=== PATIENT | female | born 1990 | race Caucasian/White ===

== ENCOUNTER 2016-11-05 18:17 | Emergency (ER) | payer MEDICAID ==
--- NOTE | 2016-11-05 20:39 | ER Document Report ---
ED General - General Mode of Arrival: Ambulatory Information source: Patient TRAVEL OUTSIDE OF THE [place] IN LAST 30 DAYS: No - HPI Onset: Other - see HPI note - General Chief Complaint: Sunburn Stated Complaint: LEG PROBLEMS Notes: Patient is a 26-year-old female presented emergency department for sometime. Patient states that she went to the week and did not protect herself a sunscreen. Patient has sunburn to her lower extremities bilaterally. Patient states that she is unsure of her last tetanus but knows that it was not within the last 10 years, she is overdue for tetanus vaccination. 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 Patient has no known allergies. Patient recently moved to this area and does not have a current primary care physician, but has Medicaid for her insurance. (ROSALINDA GANDARA) - Related Data Allergies/Adverse Reactions: nitrofurantoin [From Macrodantin] Allergy (Verified 11/05/16 18:38) Hives Sulfa (Sulfonamide Antibiotics) Allergy (Verified 11/05/16 18:38) Hives Past Medical History - General Information source: Patient - Social History Smoking Status: Unknown if Ever Smoked Family History: None Patient has suicidal ideation: No Patient has homicidal ideation: No Neurological Medical History: Reports: Other - Pseudotumor Surgical Hx: Negative Review of Systems - Review of Systems Constitutional: No symptoms reported EENT: No symptoms reported Cardiovascular: No symptoms reported Respiratory: No symptoms reported Gastrointestinal: No symptoms reported Genitourinary: No symptoms reported Female Genitourinary: No symptoms reported Musculoskeletal: No symptoms reported Skin: See HPI Hematologic/Lymphatic: No symptoms reported Neurological/Psychological: No symptoms reported Physical Exam - Vital signs Interpretation: Normal - HEENT Head: Normocephalic, Atraumatic Eyes: Normal Pupils: PERRL Mucous membranes: Moist - Respiratory Respiratory status: No respiratory distress - Cardiovascular Rhythm: Regular - Abdominal Inspection: Normal - Back Back: Normal - Extremities General upper extremity: Normal inspection, Normal ROM, Other General lower extremity: Other - 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, they are not secondarily infected, no crepitus, necrosis, or cellulitic; good pulses and perfusion; no pitting edema - Neurological Neuro grossly intact: Yes Cognition: Normal Orientation: AAOx4 [place] Coma Scale Eye Opening: Spontaneous [place] Coma Scale Verbal: Oriented [place] Coma Scale Motor: Obeys Commands [place] Coma Scale Total: 15 Speech: Normal - Psychological Associated symptoms: Normal affect, Normal mood - Skin Skin Temperature: Warm Skin Moisture: Dry Course - Re-evaluation Re-evalutation: 11/05/16 20:39 Patient presents emergency department with sunburn to her lower extremities occur week ago she didn't protect herself a sunscreen she is not diabetic 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 There is no secondary signs of infection on need for emergent antibiotics. She is well -appearing nontoxic afebrile can update her tetanus bacitracin dressing follow primary care physician on Tuesday or Tuesday and discuss reasons for ED return sooner (JESS SEGURA) - Vital Signs Vital signs: Temp Pulse Resp BP Pulse Ox 98.2 F 88 16 142/88 H 98 11/05/16 20:50 11/05/16 20:50 11/05/16 20:50 11/05/16 20:50 11/05/16 20:50 Discharge - Discharge Clinical Impression: resolving first- second-degree sunburn Condition: Stable Disposition: HOME, SELF-CARE Additional Instructions: Sunburn Sunburn is caused by prolonged exposure to ultraviolet light. This can be natural sunlight or a tanning bed. Your symptoms may include redness or blistering of the skin, fatigue, weakness, and chills that last two or three days. Treatment includes antiinflammatory pain medication, rest, cooling baths, and moisturizing skin cream. Occasionally, cortisone-type medicine is required for severe sunburns. Antihistamines may be helpful if itching is severe as you heal. You should avoid any exposure to ultraviolet light for the next week or two so that further skin damage can be avoided. In the future, you should use sunscreens. Frequent or prolonged ultraviolet light exposure can cause premature skin aging, skin cancers, and wrinkles. Call the doctor if you are not improving in two or three days. Report any drainage, increasing swelling, fever, chills, or other signs of infection. Prescriptions: Bacitracin Zinc [Bacitracin Oint 15 gm] 1 applic TP DAILY #1 tube Referrals: KEISHA LUI MD [ACTIVE STAFF] - (Call for appointment to be seen in follow-up in 3-4 days return for increasing worsening or new symptoms) Scribe Attestation: 11/05/16 20:43 I personally performed the services described in the documentation reviewed the documentation recorded by the scribe in my presence and it accurately incompletely records my words and actions (JESS SEGURA) Scribe Documentation - Scribe Written by Scribe:: Rosalinda Gandara 11/05/16 20:56 acting as scribe for :: COLTON
[2016-11-05] MEDS ORDERED: BACITRACIN ZINC OINTMENT 15 GM TP ONE (20:43)
[2016-11-05 21:03] VITALS: BP 142/88
== END 2016-11-05 20:50 | disposition home or self-care (01) ==
LOC: ER 18:17
DX: L55.1 Sunburn of second degree (principal); Z79.899 Other long term (current) drug therapy; Z88.2 Allergy status to sulfonamides; Z88.1 Allergy status to other antibiotic agents
CPT/HCPCS: 99282; J3490

== ENCOUNTER → 2016-11-24 | Outpatient (CLI) | payer MEDICAID ==
[2016-11-25 15:27] LABS: FREE T3 1.55 pg/mL (2.77-5.27); THYROID STIMULATING HORMONE 2.09 uIU/mL (0.47-4.68)
== END ==
LOC: OD 17:00
PROVIDERS: ATTEND Internal Medicine Geriatric Medicine
DX: Z68.42 Body mass index [BMI] 45.0-49.9, adult (principal)
CPT/HCPCS: 36415; 82533; 84439; 84443; 84481

== ENCOUNTER → 2016-11-25 | Outpatient (CLI) | payer MEDICAID | LOC: OD 09:04 | PROVIDERS: ATTEND Internal Medicine Geriatric Medicine | DX: E66.01 Morbid (severe) obesity due to excess calories (principal); Z68.42 Body mass index [BMI] 45.0-49.9, adult | CPT/HCPCS: 36415; 82533 ==

== ENCOUNTER 2017-01-22 22:48 | Emergency (ER) | payer MEDICAID ==
[2017-01-23] MEDS ORDERED: ERYTHROMYCIN 0.5% OPH OINTMENT 3.5 GM TUBE OS ONE (00:58)
--- NOTE | 2017-01-23 01:02 | ER Document Report ---
ED General - General Chief Complaint: Eye Problem Stated Complaint: LEFT EYE PAIN Time Seen by Provider: 01/23/17 00:40 Notes: Patient is a 26-year-old female presents with complaint of pain in the left eye. Patient says that she feels as if there is something in her eye. She denies being around any debris. She is only thing that she is done today which can cause something to go to her eye is that she was driving with her windows down earlier. Her vision is a little blurred in that eye and she does have some photophobia. She has no other complaints at this time. TRAVEL OUTSIDE OF THE [place] IN LAST 30 DAYS: No - Related Data Allergies/Adverse Reactions: nitrofurantoin [From Macrodantin] Allergy (Verified 11/05/16 18:38) Hives Sulfa (Sulfonamide Antibiotics) Allergy (Verified 11/05/16 18:38) Hives Past Medical History - Social History Smoking Status: Unknown if Ever Smoked Frequency of alcohol use: None Drug Abuse: None Family History: None Patient has suicidal ideation: No Patient has homicidal ideation: No Renal/ Medical History: Denies: Hx Peritoneal Dialysis Surgical Hx: Negative - Immunizations Hx Diphtheria, Pertussis, Tetanus Vaccination: Yes Review of Systems - Review of Systems Notes: My Normal Review Basic REVIEW OF SYSTEMS: CONSTITUTIONAL : Denies fever, chills, or sweats. Denies recent illness. EENT: Left eye pain. SKIN: Denies rash or skin lesions. NEUROLOGICAL: Denies altered mental status or loss of consciousness. ALL OTHER SYSTEMS REVIEWED AND NEGATIVE. Physical Exam - Vital signs Vitals: Temp Pulse Resp BP Pulse Ox 98.6 F 105 H 18 145/102 H 96 01/22/17 22:57 01/22/17 22:57 01/22/17 22:57 01/22/17 22:57 01/22/17 22:57 - Notes Notes: General Appearance: Well nourished, alert, cooperative, no acute distress, no obvious discomfort. Vitals: reviewed, See vital signs table. Head: no swelling or tenderness to the head Eyes: PERRL, EOMI, Conjuctiva clear. Negative for seems staining of the eye. On slit-lamp examination patient does have a small speck of what appears to be organic material embedded over the pupil. Does not appear to be metallic. No hyphema. No sidels's sign Skin: warm, dry, appropriate color, no rash Neuro: speech clear, oriented x 3, normal affect, responds appropriately to questions. Course - Re-evaluation Re-evalutation: 01/23/17 01:31 Patient has small foreign body in the left eye. I am unable to remove it. I did attempt use of Q-tips rolled off. I could not get up. Due to the very small size of the material do not think an 18-gauge needle would be appropriate as it would be very hard to get behind this to remove it. I will place her on erythromycin ointment. I will refer her to the home health nurse licensed practical. I encouraged her to call the home health nurse licensed practical office on Tuesday for close follow-up. Patient agrees with plan and will be discharged home. Dictation of this chart was performed using voice recognition software; therefore, there may be some unintended grammatical errors. - Vital Signs Vital signs: Temp Pulse Resp BP Pulse Ox 98.6 F 105 H 18 145/102 H 96 01/22/17 22:57 01/22/17 22:57 01/22/17 22:57 01/22/17 22:57 01/22/17 22:57 Discharge - Discharge Clinical Impression: Foreign body, eye Qualifiers: Encounter type: initial encounter Laterality: left Qualified Code(s): T15.92XA - Foreign body on external eye, part unspecified, left eye, initial encounter Condition: Good Disposition: HOME, SELF-CARE Additional Instructions: Please apply the erythromycin ointment to the eye 6 times a day. Please call the ophthamologist, Dr. Abreu or Dr. Kenney, for a close follow up appointment Tuesday so you can get the foreign body removed. return to [facility] ER if oyu have increasing redness to your eye or any further concerns. Referrals: OPHELIA KENNEY MD [ACTIVE STAFF] - 01/24/17 EDGARD ABREU DO [ACTIVE STAFF] - 01/24/17
[2017-01-23 01:31] VITALS: BP 135/95
[2017-01-23] MEDS ORDERED: ERYTHROMYCIN 0.5% OPH OINT 1 GM UNIT DOSE OS ONE (01:36)
== END 2017-01-23 01:53 | disposition home or self-care (01) ==
LOC: ER 22:48
DX: T15.92XA Foreign body on external eye, part unspecified, left eye, initial encounter (principal); H57.12 Ocular pain, left eye; X58.XXXA Exposure to other specified factors, initial encounter; Z88.1 Allergy status to other antibiotic agents; Z88.2 Allergy status to sulfonamides
CPT/HCPCS: 99283; J3490